=== PATIENT | male | born 1970 | race American Indian/Alaskan Native ===

== ENCOUNTER 2017-12-02 21:57 | Emergency (ER) | payer SELFPAY ==
[2017-12-02 22:27] VITALS: BP 145/98
[2017-12-02] MEDS ORDERED: ASPIRIN PO ONE (22:27)
== END 2017-12-02 23:32 | disposition left against medical advice (07) ==
LOC: ED 21:57
DX: R07.9 Chest pain, unspecified (principal); Z53.21 Procedure and treatment not carried out due to patient leaving prior to being seen by health care provider
CPT/HCPCS: 93005; 93010

== ENCOUNTER 2019-01-13 09:10 | Emergency (ER) | payer OTHER ==
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
== END 2019-01-13 10:44 | disposition home or self-care (01) ==
LOC: ED 09:10
CPT/HCPCS: 99282